=== PATIENT | female | born 1965 | race Caucasian/White ===

== ENCOUNTER 2022-04-19 14:26 | Emergency (ER) | payer OTHER, SELFPAY ==
[2022-04-19 14:29] VITALS: BP 141/94; PULSE 99; RESP 18; TEMP 36.6; O2SAT 97; BMI 25.7
--- NOTE | 2022-04-19 14:33 | ED_ITS ---
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 She states the patient became unconscious and fell on top of her while she was trying to put on her brief. The patient helped other staff members left the unconscious patient up off the floor. When transferring the patient from the stretcher to the bed she was pulled forward. She was encouraged to come to the ER for evaluation after the incident. Patient has been ambulating normally. She reports she feels the injury is muscle strain and spasm. She does not have a history of low back injury or issues in the past. She denies any numbness, weakness or tingling in the right leg. No bowel or bladder incontinence. MD elicited complaint: back pain and back injury Onset (ago): hour(s) Timing: intermittent Severity: moderate Similar Symptoms Previously: No Quality: aching Location: right lower back Radiation: groin and buttocks Exacerbating factors: movement Relieving factors: none Context: while lifting, bending and fall Associated symptoms: denies other symptoms Work related injury: Yes Related Data Previous Rx's Medication Instructions Recorded cyclobenzaprine 10 mg tablet 10 mg PO TID PRN muscle spasm #14 04/19/22 tabs ibuprofen 600 mg tablet 600 mg PO Q8H PRN pain #14 tabs 04/19/22 Allergies Allergy/AdvReac Type Severity Reaction Status Date / Time No Known Allergies Allergy Verified 04/19/22 14:34 Review of Systems Review of Systems: Yes all other systems are reviewed and are negative PMFSH Social History Social History Advance Directives: No Advance Directives Information Provided: No Physical Exam Vital Signs: Vital Signs: Last Vital Signs Temp 98 F 04/19/22 14:29 Pulse 99 04/19/22 14:29 Resp 18 04/19/22 14:29 BP 141/94 H 04/19/22 14:29 Pulse Ox 97 04/19/22 14:29 O2 Del Method 04/19/22 14:29 BMI result Body Mass Index 25.7 Appearance: Alert. Oriented X3. No acute distress. HEENT: normal inspection CVS: Normal heart rate and rhythm. Pulses normal. Respiratory: No respiratory distress. Skin: Skin warm and dry. Normal skin color. Normal skin turgor. No rashes. Back: Normal inspection, soft tissue tenderness of the right lower lumbar area, SI joint. no midline tenderness. normal ROM of the spine. Extremities: normal inspection x4, normal ROM. no joint swelling Neuro: Oriented X 3. No motor deficit. No sensory deficit. steady gait Medical Decision Making Medical Decision Making MDM Narrative: 56-year-old female presenting to the ER for evaluation of right lower back pain that radiates into the right buttock and right groin after a work related injury today. No significant fall to suggest a acute fracture. She is ambulating normally and has full range of motion. Clinical presentation and examination are consistent with soft tissue strain and spasm. Will treat accordingly with Flexeril, NSAIDs, rest. She will follow-up with her primary care doctor. We discussed return precautions. Stable for discharge home Differential Diagnosis Differential Diagnoses: The differential diagnosis associated with the presentation includes Inflammatory disorders, malignancy, trauma, osteoporosis, nerve root compression, radiculopathy, plexopathy, degenerative disc disease, disc herniation, spinal stenosis, sacroiliac joint dysfunction, facet joint injury, and less likely infection?like abscess or diskitis Prescription Management I considered prescription management with: Pain Medication and Other (Muscle relaxer) Critical Care Time Critical Care Time Critical Care Time: No Discharge Plan Discharge Clinical Impression: Low back strain Patient Disposition: Home, Self-Care Instructions: Low Back Strain (ED), Lower Back Exercises (ED) Additional Instructions: Your back pain is most likely due to muscle strain and spasm. No bending, lifting or twisting. Use ice several times per day for 20 minutes at a time for the next 48 hours and then change to heat. Take medications as prescribed to help with pain and discomfort. Follow up with your Primary Care Doctor this week. If your pain worsens, if you develop new numbness, tingling, weakness, loss of function or incontinence call 911 or come back to the ER right away for evaluation. Prescriptions: New cyclobenzaprine 10 mg tablet 10 mg PO TID PRN (Reason: muscle spasm) Qty: 14 0RF ibuprofen 600 mg tablet 600 mg PO Q8H PRN (Reason: pain) Qty: 14 0RF Referrals: Dagmar Hoang NP [Primary Care Provider] - Stand Alone Forms: Work/School Release Interventions: ED Discharge Assessment Last Done: 04/19/22 14:38 Discharge Date/Time: 04/19/22 14:44
== END 2022-04-19 14:44 | disposition home or self-care (01) ==
LOC: HO.ED 14:38
PROVIDERS: Emergency Provider Student in an Organized Health Care Education/Training Program; PCP Hospitalist
DX: M54.50 Low back pain, unspecified (principal)
CPT/HCPCS: 99282

== ENCOUNTER 2022-04-20 10:44 | Outpatient (REF) | payer OTHER, SELFPAY ==
[2022-04-20 14:07] LABS: Hematocrit 44.9 % (37.0-47.0); Hemoglobin 14.7 g/dl (12.0-16.0); Mean Corpuscular HGB Conc 32.7 g/dl (31.0-35.0); Mean Corpuscular Hemoglobin 29.9 pg (27.0-33.0); Mean Corpuscular Volume 91.4 fL (80.0-98.0); Mean Platelet Volume 10.6 fL (9.4-12.3); Platelet Count 290 X10*3/uL (160-400); Red Blood Count 4.91 X10*6/uL (4.20-5.50); White Blood Count 7.2 X10*3/uL (4.8-10.8)
[2022-04-20 14:36] LABS: Alanine Aminotransferase 20 U/L (0-31); Albumin Level 4.7 g/dL (3.5-5.0); Alkaline Phosphatase 67 U/L (39-117); Anion Gap 18 (12-20); Aspartate Amino Transferase 23 U/L (5-31); Bilirubin Total 0.9 mg/dL (0.0-1.0); Blood Urea Nitrogen 10 mg/dL (9-16); Calcium 9.4 mg/dL (8.4-10.2); Carbon Dioxide 23 mmol/L (22-29); Chloride 105 mmol/L (96-108); Cholesterol 233 mg/dL; Estimated Glomerular Filt Rate > 60; Glucose Fasting 83 mg/dL (60-99); HDL Cholesterol 85 mg/dL; LDL Cholesterol Calculated 128 mg/dl; Potassium 4.8 mmol/L (3.3-5.1); Sodium 141 mmol/L (135-145); Total Protein 7.8 g/dL (6.5-8.0); Triglycerides 101 mg/dL
[2022-04-20 14:52] LABS: TSH reflex Free T4 0.89 uIU/mL (0.32-4.0)
== END 2022-04-20 10:45 | disposition home or self-care (01) ==
LOC: HO.WFDLDS 10:44
PROVIDERS: Visit Provider Hospitalist
DX: Z00.00 Encounter for general adult medical examination without abnormal findings (principal); Z71.89 Other specified counseling
CPT/HCPCS: 36415; 80053; 80061; 84443; 85027

== ENCOUNTER → 2022-04-20 11:13 | Outpatient (BNVA) | payer OTHER, SELFPAY | PROVIDERS: PCP Hospitalist; Visit Provider Internal Medicine | DX: Z13.89 Encounter for screening for other disorder (principal) | CPT/HCPCS: 99202 ==

== ENCOUNTER 2022-04-22 07:57 | Emergency (ER) | payer OTHER, SELFPAY ==
[2022-04-22 07:59] VITALS: BP 160/88; PULSE 92; RESP 16; TEMP 36.3; O2SAT 100; BMI 25.7
--- NOTE | 2022-04-22 08:04 | ED_ITS ---
HPI - Skin/Abscess/Foreign Bdy General Chief complaint: Skin/Abscess/Foreign Body Stated complaint: Rash Time Seen by Provider: 04/22/22 08:03 Source: patient Mode of arrival: ambulatory Limitations: no limitations History of Present Illness HPI narrative: 56 yo female with history of recent work related back injury presents to the ER for evaluation of a rash to her forehead that started four days ago. It is itchy and has some drainage when she itches it. Last week when she had the work related injury, she was on the floor with her forehead pinned up against her walker. She states it has been the same for the last 4 days, no worsening and no improving. No numbness, tingling or burning sensation. No vision changes, no eye discharge, no swelling of her face. complaint: rash Onset (ago): day(s) (4) Location: head and face Severity: moderate Quality: pruritic Pain Consistency: intermittent Relieving factors: none Exacerbating factors: none Context: other (recent injury) Associated symptoms: denies other symptoms Treatments prior to arrival: none Related Data Previous Rx's Medication Instructions Recorded cephalexin 500 mg capsule 500 mg PO Q6H 7 days #28 caps 04/22/22 mupirocin 2 % topical ointment 1 appl topical TID #22 grams 04/22/22 Allergies Allergy/AdvReac Type Severity Reaction Status Date / Time No Known Allergies Allergy Verified 04/20/22 10:17 Review of Systems Review of Systems: Yes all other systems are reviewed and are negative [facility] Past Medical History Medical History Lower back injury Social History Social History Household Members: Spouse and Family Housing: House Alcohol intake: never Patient Tobacco Use Status: Current everyday Tobacco user Tobacco use type: Cigarette Smoked in Last 30 Days: No e-Cigarette/Vaping Use: Never Used Use of substances other than those prescribed or required for medical reasons: No Substance Use Type: Marijuana Advance Directives: No Advance Directives Information Provided: No Patient : No Current occupational status: employed Physical Exam Vital Signs: Vital Signs: Last Vital Signs Temp 98.1 F 04/22/22 08:18 Pulse 87 04/22/22 08:18 Resp 18 04/22/22 08:18 BP 131/91 H 04/22/22 08:18 Pulse Ox 98 04/22/22 08:18 O2 Del Method 04/22/22 08:18 BMI result Body Mass Index 25.7 Appearance: Alert. Oriented X3. No acute distress. HEENT: erythematous, warm area on the right side of the forehead with a few small pustules, no drainage, minimal tenderness. CVS: Normal heart rate and rhythm. Pulses normal. Respiratory: No respiratory distress. Skin: Skin warm and dry. Normal skin color. Normal skin turgor. Extremities: normal inspection x4, normal ROM Neuro: Oriented X 3. No motor deficit. No sensory deficit. Medications Administered Discontinued Medications Generic Name Dose Route Start Last Admin Trade Name Titoq PRN Reason Stop Dose Admin Cephalexin HCl 500 mg 04/22/22 08:27 04/22/22 08:56 Cephalexin 500 Mg Capsule PO 04/22/22 08:28 500 mg ONCE ONE Administration Mupirocin 1 appl 04/22/22 08:27 04/22/22 09:10 Mupirocin 2 % Oint 22 Gm Tube TOPICAL 04/22/22 08:28 1 appl ONCE ONE Administration Protocol Medical Decision Making Medical Decision Making MDM Narrative: 56-year-old female presents to the ER for evaluation of a itchy and red rash to the right side of her face for the last 4 days. On examination it is difficult to differentiate between bacterial versus viral etiology. It has been 4 days with no worsening of the rash. No typical burning sensation or severe pain to raise high clinical suspicion for shingles. Case discussed with Dr. Dixon who reviewed the image, he agrees with treating for bacterial infection and have close monitoring. She is instructed to call her doctor or come back to the ER if she were to have any worsening or extension of the rash to the eye. Differential Diagnosis Differential Diagnoses: The differential diagnosis associated with the presentation includes staph/impetigo, cellulitis, shingles, dermatitis External Record Review External record reviewed: Outpatient record Prescription Management I considered prescription management with: Antiviral and Antibiotic start with treatment for bacterial rash, monitor closely and f/u if symptoms worsen to get evaluated for possible shingles Discharge Plan Discharge Clinical Impression: Impetigo Patient Disposition: Home, Self-Care Instructions: Impetigo (ED) Additional Instructions: Use the prescribed ointment and take the prescribed antibiotics for bacterial infection. If you notice no improvement or worsening symptoms despite treatment, call your doctor right way or come back to the ER for further evaluation. Prescriptions: New cephalexin 500 mg capsule 500 mg PO Q6H 7 Days Qty: 28 0RF mupirocin 2 % ointment 1 appl topical TID Qty: 22 0RF Referrals: Dagmar Hoang, [employer] [Primary Care Provider] - Interventions: ED Discharge Assessment Last Done: 04/22/22 09:12 Discharge Date/Time: 04/22/22 09:13
[2022-04-22 08:18] VITALS: BP 131/91; PULSE 87; RESP 18; TEMP 36.7; O2SAT 98
--- OUTSIDE RECORDS SUMMARY | 2022-04-22 08:40 | XMS_ITS | Continuity of Care Document ---
:1965 Author Organization [facility] nter Address [address] [place] [address]- Care Team Providers Name Role Phone Not on Staff, PCP Primary Care Physician Unavailable Encounter [facility] Date(s): 01/16/22 - 01/16/22 [facility] [address] [place] [address]- Discharge Disposition: A-D/C Home Attending Physician: Shavonne Resendez MD Admitting Physician: Shavonne Resendez MD Referring Physician: Not on Staff, Referring MD Allergies, Adverse Reactions, Alerts No Known Allergies Immunizations Given and Recorded Vaccine Date Status Refusal Reason SARS-CoV-2 (COVID-19) mRNA BNT-162b2 vac1 02/10/20 Record ed tetanus-diphtheria toxoids (Td)2 12/14/05 Given 1Result Comment: [facility] [id number] Note: [facility] biologic lab INFO SHEET GIVEN Medications Acidophilus oral capsule 1 capsule, By Mouth, 2 times a day, # 28 capsule, 0 Refills, Maintenance, 07/05/18 13:32:15 EDT Start Date: 07/05/18 Stop Date: 07/19/18 Status: Orderedalbuterol CFC free 90 mcg/inh inhalation aerosol 2, puffs, Inhalation, Every 4 hours, PRN, # 18 Gm, Refills 0, Tot. Refills 0, Maintenance, 01/16/22 11:39:00 EST, Aerosol, Route to Pharmacy Electronically, [id number], [facility]/pharmacy #[id number], [address], cm, 01/16/22 9:22:00 EST, Heigh... Start Date: 01/16/22 Status: OrderedHycodan 5 mg-1.5 mg/5 mL oral syrup 5 mL, By Mouth, Every 4 hours, PRN for cough, # 60 mL, 0 Refills, Maintenance, 01/16/22 11:40:00 EST, Syrup, [id number], Partial fill upon patient request if the prescription is for a schedule II opioid drug., 5 mL By Mouth Every 4 hours,PRN:f... Start Date: 01/16/22 Status: OrderedpredniSONE 50 mg oral tablet 1 tablet = 50 mg, By Mouth, Daily, for 4 days, # 4 tablet, 0 Refills, Acute 01/20/22 11:40:00 EST, 01/16/22 11:40:00 EST, Tablet, [id number], Partial fill upon patient request if the prescription is for a schedule II opioid drug., 164, cm, .. Start Date: 01/16/22 Stop Date: 01/20/22 Status: OrderedTessalon Perles 100 mg oral capsule 2 capsule = 200 mg, By Mouth, 3 times a day, PRN Cough, # 21 capsule, 0 Refills, Maintenance, 01/16/22 11:40:00 EST, Capsule, [facility]/pharmacy #[id number], Partial fill upon patient request if the prescription is for a schedule II opioid drug., 164, cm, ... Start Date: 01/16/22 Status: Ordered Results Radiology Reports Exam Date Time Procedure Performing Provider Status 01/16/22 10:42 AM Chest Portable Aida Ortiz (Elaine mead) Notes:(Chest Portable) Reason For Exam: covid;Shortness of BreathRESULT: Chest Portable Chest Portable CLINICAL INDICATION: Shortness of Breath; covid; Clinical Question(s): Pneumonia COMPARISON: Chest x-ray, 05/07/2017. FINDINGS: The cardiac silhouette is within normal limits. Hilar and mediastinal contours are normal.The lungs are clear. There is no pleural effusion, pneumothorax, or evidence of CHF. No acute osseous abnormality is noted. IMPRESSION: No acute cardiopulmonary process. WSN: [id number] Ordering Physician: Shavonne Resendez Dictated By: Jacki Blakely MD Dictated Date/Time: 01/16/22 10:43 a Reviewed By: Jacki Blakely MD Signed By: Jacki Blakely MD Signed Date/Time: 01/16/22 10:43 am Transcribed By: JOSE MARTIN Transcribed Date/Time: 01/16/22 10:43 am Vital Signs Most recent to oldest 1 2 3 [Reference Range]: Height 164 cm (01/16/22 9:22 AM) Weight 71.5 kg (01/16/22 9:22 AM) Oxygen Saturation [94-100 %] 100 % 95 % 98 % (01/16/22 11:59 AM) (01/16/22 10:14 AM) (01/16/22 9 :22 AM) Pulse Rate [55-90 bpm] 110 bpm 72 bpm 81 bpm *H* (01/16/22 10:14 AM) (01/16/22 9:22 AM) (01/16/22 11:59 AM) Blood Pressure [90-138/55-84 131/69 mm Hg 143/74 mm Hg 172 /79 mm Hg mm Hg] (01/16/22 11:59 AM) *H* *H* (01/16/22 10:14 AM) (01/16/22 9:22 AM) Respiratory Rate [16-30 19 br/min 16 br/min 18 br/mi n br/min] (01/16/22 11:59 AM) (01/16/22 10:14 AM) (01/16/22 9 :22 AM) Temperature [96.8-100.4 DegF] 98.4 DegF 97.9 DegF (01/16/22 10:14 AM) (01/16/22 9:22 AM) Mode of Delivery (Oxygen) Room air Room air Room a ir (01/16/22 11:59 AM) (01/16/22 10:14 AM) (01/16/22 9 :22 AM) Temperature Route Oral Oral (01/16/22 10:14 AM) (01/16/22 9:22 AM) Dry Weight 71.5 kg (01/16/22 9:22 AM) Social History Social History Type Response Smoking Status 10 or more cigarettes (1/2 p ack or more)/day in last 30 days; Type: Cigarettes; Started at age: 18; entered on: 07/05/18 Sex Portable XR Chest Views BHSPowerscribe , CIS S: TRANSCRIBE Jacki Blakely MD: VERIFY Event Display: Result: Authored Date: [id number] Chest Portable CLINICAL INDICATION: Shortness of Breath; covid; Clinical Question(s): Pneumonia COMPARISON: Chest x-ray, 05/07/2017. FINDINGS: The cardiac silhouette is within normal limits. Hilar and mediastinal contours are normal.The lungs are clear. There is no pleural effusion, pneumothorax, or evidence of CHF. No acute osseous abnormality is noted. IMPRESSION: No acute cardiopulmonary process. WSN: [id number] Ordering Physician: Shavonne Resendez Dictated By: Jacki Blakely MD Dictated Date/Time: 01/16/22 10:43 a Reviewed By: Jacki Blakely MD Signed By: Jacki Blakely MD Signed Date/Time: 01/16/22 10:43 am Transcribed By: JOSE MARTIN Transcribed Date/Time: 01/16/22 10:43 am Patient Care team information Care Team PersonnelName: Not on Staff, PCP Position: [facility] Physician (General Medicine) Member Role: PCP Name: Shavonne Resendez MD Position: [facility] ED Medicine MD Member Role: Admitting Physician Address: Address: [address] [place] [address]- Name: Verónica Tan RN Position: [facility] ED RN W/OE and Tasks Member Role: Patient Care Provider Care Team Related PersonsName: CURT JI Address: [place] [address] Name: APRIL CARL Address: [place] [address]
[2022-04-22] MEDS: cephALEXin 500 MG CAPSULE PO (08:56)
[2022-04-22] MEDS: Mupirocin 2 % Oint 22 GM TUBE 1 APPL TOPICAL (09:10)
== END 2022-04-22 09:13 | disposition home or self-care (01) ==
PROVIDERS: Emergency Provider Emergency Medicine; PCP Hospitalist
DX: L01.00 Impetigo, unspecified (principal); F17.210 Nicotine dependence, cigarettes, uncomplicated; Z71.6 Tobacco abuse counseling
CPT/HCPCS: 99283; 99284

== ENCOUNTER 2022-04-22 15:32 | Outpatient (REF) | payer OTHER, SELFPAY ==
--- NOTE | ~2022-04-22 | MM_ITS ---
EXAMINATION: MM SCREENING DIGITAL BREAST TOMOSYNTHESIS, BILATERAL CLINICAL INFORMATION: Screening. Asymptomatic. Family history breast cancer, sisters x2. The lifetime risk of breast cancer based on the Tyrer-Cuzick Model is 25%. COMPARISON: Outside mammography 08/19/2016 ([facility]) TECHNIQUE: Digital breast tomosynthesis is performed in both the craniocaudal and mediolateral oblique views along with computer-aided detection (CAD). Synthesized 2D images are generated from the tomosynthesis. FINDINGS: The breasts are heterogeneously dense, which may obscure small masses (ACR BI-RADS breast composition Category c). The denser breast tissue composition is in the anterior breasts. There is no significant mass or architectural abnormality or abnormal calcifications. The axilla and skin contours are unremarkable. MM/MM tomosynthesis screening BI IMPRESSION: No significant changes from prior outside exam 2016. ASSESSMENT: BI-RADS 1: Negative RECOMMENDATION: Routine annual mammography screening. This patient's information was entered into a reminder system with a target due date for their next mammogram.
== END 2022-04-22 15:33 | disposition home or self-care (01) ==
LOC: HO.MAMMO 15:32
PROVIDERS: Visit Provider Hospitalist
DX: Z12.31 Encounter for screening mammogram for malignant neoplasm of breast (principal)
CPT/HCPCS: 77063; 77067

== ENCOUNTER 2024-05-12 09:08 | Outpatient (AMB) | payer OTHER, SELFPAY ==
--- NOTE | 2024-05-12 09:10 | A.OFFPC_ITS ---
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: No Allergies No Known Allergies Allergy (Verified 05/12/24 09:32) Medication List - Last Reconciled 05/12/24 by LY Rodrigez- semaglutide (weight loss) 1.7 mg subcut QWEEK Tobacco use date assessed: 05/12/24 Dental Screening Dental Screen Date: 05/12/24 Did you have a dental visit in the last 12 months?: Yes Did you have a dental problem in the last 6 months where you did not have access to dental care?: No Was dental information given to patient?: Patient has dentist HPI HPI Comments 2 History of Present Illness0 Details 58 y/o F current smoker, HLD, family hx of breast ca (2 sisters) 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 She noted its onset about two weeks prior, describing it as itchy and having flaked off twice. - She expresses difficulty accessing jason matologic care. - Family history includes breast cancer in two sisters, one of whom in 2019, and the patient has not had a mammogram in two years. - The patient has smoked since age 15, c urrently reporting approximately two packs per day x 45 years; tried gum; patches caused rash. Having increased activity intolerance Does not have inhalers at this time; interested in that. - She reports elevated hemoglobin A1c wi th a noted increase over time. on semaglutide for weight loss of what she was buying [id number] - She describes occasional swelling in t he lower extremities that comes and goes -Concerns about sleep apnea but does not want to do sleep study at this time. Social - History of avid hiking and backpacking , though activity reduced due to health concerns. - Daughter no longer living at home. ROS - Respiratory: Reports persistent shortn ess of breath. - Musculoskeletal: Denies problems with feet, swelling noted at day?s end. - Dermatological: Reports peeling and it chad lesion on chest. - General: Denies recent flu shot, repor ts improved health with mask-wearing during COVID-19 pandemic. Exam: General: Well developed, well nourished, in no acute distress. Appears stated age. Head: Normocephalic, atraumatic. Eyes: Pupils are equal, round and reactive to light and accommodation. Conjunctivae are clear. Vision grossly normal. Ears: TMs clear AU, EACS WNL Nose: Patent, without discharge. Mouth: There are no ulcers or lesions noted. No inflammation, no post nasal drip, no plaques nor exudates. Neck: Supple, no adenopathy or thyromegaly. Lungs: Clear to auscultation bilaterally. No rales or wheeze noted. Good air flow in all cates. + rhonci BLL that cleared w/ cough. Heart: Regular rate and rhythm. No murmurs, click, rubs or gallops are noted. Abdomen: Bowel sounds present in all quadrants. The abdomen is soft, nontender, with no masses or organomegaly noted. No hernias are noted. Musculoskeletal: Joints are nontender, without swelling, redness, or effusions. Range of motion is observed to be normal. Pulses: Peripheral pulses are equal and palpable bilaterally. Extremities: No clubbing, cyanosis nor edema is noted. Neurologic: Gait and station normal. Cranial Nerves 2-12 intact. Motor strength grossly symmetrical and intact. No sensory loss. Balance normal. Skin: No rashes, ulcers. Turgor is good. Skin color is good. Hair and nails are without abnormalities. Scabbed healing skin tear to L anterior ankle w/o complication Psych: Normal eye contact, affect and mood appropriate, and normal interactions. Patient is alert and appropriate to context. Anterior mid chest: Plan: Refer to [facility] General surgery team both for evaluation of the lesion on her chest and for genetic testing giving her family history of breast cancer in 2 sisters. Declined vaccinations Mammogram, DEXA and colonoscopies ordered. Smoking cessation reviewed. Refer to the lung cancer screening program. Refer to pulmonology for management. Start on Breo 50-25 mcg 1 inhalation daily. Offered albuterol but she reports that this only causes tachycardia and offers no improvement in her breathing. Check CXR -- results WNL today. Check routine screening labs RTO 1 year CPE, sooner PRN Patient was informed and verbally consented to the use of an ambient scribe for clinic note documentation during this visit. An additional 30 minutes was spent addressing the problem(s) noted at todays visit. This includes time spent before the visit reviewing the chart, time spent during the visit, and time spent after the visit on documentation reviewing laboratory results, diagnostic imaging, medications, performing a medically necessary evaluation, counseling on diagnoses, care coordination, ordering appropriate tests, ordering appropriate medications, review of tests performed by other providers, reporting test results with the patient, communication with other healthcare providers. [facility] Medical History Lower back injury Surgical History (Updated 05/12/24 @ 09:14 by Jenniffer Russo MA) No pertinent past surgical history Family History (Updated 05/12/24 @ 09:28 by Jenniffer Russo MA) Mother Diabetes Substance abuse Sister Diabetes Breast cancer Social History (Updated 05/12/24 @ 09:13 by Jenniffer Russo MA) Household Members: Spouse and Family Housing: House Are you a primary care team coordinator scheduler to a significant other at home: No Do you presently have visiting nurse or other home services: No Alcohol intake: never Patient Tobacco Use Status: Current everyday Tobacco user Tobacco use type: Cigarette e-Cigarette/Vaping Use: Never Used Second Hand Smoke Exposure: No Substance Use Type: Marijuana Current occupational status: employed Cognitive needs: No Hearing needs: No Vision needs: No Questionnaire PHQ-9 Over the last 2 weeks, how often have you been bothered by any of the following problems? 1. Little interest or pleasure in doing things: several days 2. Feeling down, depressed, or hopeless: several days 3. Trouble falling or staying asleep, or sleeping too much: several days 4. Feeling tired or having little energy: several days 5. Poor appetite or overeating: not at all 6. Feeling bad about yourself - or that you are a failure or have let yourself or your family down: not at all 7. Trouble concentrating on things, such as reading the newspaper or watching television: not at all 8. Moving or speaking so slowly that other people could have noticed. Or the opposite - being so fidgety or restless that you have been moving around a lot more than usual: not at all 9. Thoughts that you would be better off or of hurting yourself in some way: not at all Total score: 4 Depression Screening Interpretation: Negative Depression Screening Done: Yes 32175 - PHQ-9 Billing: Yes Source: Developed by Drs. Kelvin Castellanos, Kiya Hdz, Dashawn Hansen and colleagues, with an educational niharika from [employer]. Thrive Questionnaire Date Thrive assessed: 05/12/24 I am a: Patient What is your living situation today?: I have a steady place to live Within the past 12 months, did the food you bought not last and you didn't have the money to get more?: Never true Within the past 12 months, did you worry whether your food would run out before you got money to buy more?: Never true Do you have trouble paying for medicines?: No Do you have trouble getting transportation to medical appointments?: No Do you have trouble paying your heating and electricity bill?: No Do you have trouble taking care of your child, family member or friend?: No Do you have trouble with day-to-day activities such as bathing, preparing meals, shopping, managing finances, etc.?: No Are you currently unemployed and looking for a job?: No Are you interested in more education?: No Please select the resources that you would like help with: None Currently or been in a relationship where the following occur: No concerns reported THRIVE Score: 0 AUDIT C Alcohol Use Questionnaire (AUDIT-C) 1. How often do you have a drink containing alcohol?: Never 3. How often do you have six or more drinks on one occasion?: Never Total Score: 0 Score Reviewed/Action Taken: Yes FACUNDO-7 AMB Questionnaire FACUNDO-7 Date FACUNDO - 7 assessed: 05/12/24 Feeling nervous, anxious, or on edge: 0 = Not at all Not being able to stop or control worryin = Not at all Worrying too much about different things: 0 = Not at all Trouble relaxin = Not at all Being so restless that it is hard to sit still: 0 = Not at all Becoming easily annoyed or irritable: 0 = Not at all Feeling afraid as if something awful might happen: 0 = Not at all Total FACUNDO-7 score (0-4 normal; 5-9 mild; 10-14 moderate; 15-21 severe): 0 Source: Developed by Drs. Kelvin Castellanos, Kiya Hdz, Dashawn Hansen and colleagues, with an educational niharika from [employer]. FACUNDO-7 Assessment Billing FACUNDO-7 Assessment Tool: FACUNDO-7 Assessment 85616 Physical exam (Primary Care) Vital Signs: Last Vital Signs Temp 97.2 F 05/12/24 09:20 Pulse 68 05/12/24 09:20 Resp 12 05/12/24 09:20 BP 122/70 05/12/24 09:20 Pulse Ox 100 05/12/24 09:20 Oxygen Delivery Method Room Air 05/12/24 09:20 BMI result Body Mass Index 26.3 Tobacco/Smoking Status: Tobacco use Status Tobacco use date assessed 05/12/24 05/12/24 09:16 Patient Tobacco Use Status Current everyday Tobacco 05/12/24 09:16 Tobacco use type Cigarette 05/12/24 09:16 e-Cigarette/Vaping Use Never Used 05/12/24 09:16 Are you ready to quit: Yes Tobacco cessation counseling provided: Yes Items discussed: Nicotine replacement, QuitWorks and Other Relapse Prevention: discussed the importance of a supportive environment, discussed extending NRT, discussed negative mood or depression after quitting, weight gain after smoking is common and discussed dietary, exercise and/or lifestyle changes Number of minutes spent counselin CPT code: 55848 - 4-10 Minutes PHQ-9: PHQ-9 Score PHQ-9: Total score 4 05/12/24 13:46 Depression Screening Interpretation: Negative Thrive Assessment: Date of Thrive Assessment Date Thrive assessed 05/12/24 05/12/24 09:16 Currently or been in a relationship where the following occur: No concerns reported Results Reviewed Results Reviewed: CXR results: No acute airspace disease Coding Level of Care Code Est Pt Level 4 (30965) Est Pt Prev Care 40-64y(67404) Diagnoses Encounter for general adult medical examination with abnormal findings Z00.01 Atypical pigmented skin lesion L81.9 Family history of breast cancer Z80.3 Menopause Z78.0 Cigarette smoker motivated to quit F17.210 Screening for lung cancer Z12.2 Colon cancer screening Z12.11 Laboratory exam ordered as part of routine general medical examination Z00.00 Chronic cough R05.3 Cough type: chronic Mixed hyperlipidemia E78.2 Hyperlipidemia type: mixed hyperlipidemia Influenza vaccination declined Z28.21 Tetanus, diphtheria, and acellular pertussis (Tdap) vaccination declined Z28.21 Additional Codes FACUNDO-7 Assessment Billing - FACUNDO-7 Assessment Tool: FACUNDO-7 Assessment 20041 ([id number]) PHQ-9 - 86984 - PHQ-9 Billing: Yes ([id number]) Vital Signs *Quality* - CPT code: 66234 - 4-10 Minutes ([id number]) Assessment & Plan Assessment & Plan (1) Encounter for general adult medical examination with abnormal findings: Onset Date: ~05/2024 Code(s): Z00.01 - Encounter for general adult medical examination with abnormal findings Category: Medical (2) Atypical pigmented skin lesion: Comment: anterior chest Code(s): L81.9 - Disorder of pigmentation, unspecified Category: Medical (3) Family history of breast cancer: Comment: 2 sisters w/ breast ca Code(s): Z80.3 - Family history of malignant neoplasm of breast Category: Medical (4) Menopause: Code(s): Z78.0 - Asymptomatic menopausal state Category: Medical (5) Cigarette smoker motivated to quit: Code(s): F17.210 - Nicotine dependence, cigarettes, uncomplicated Category: Medical (6) Screening for lung cancer: Code(s): Z12.2 - Encounter for screening for malignant neoplasm of respiratory organs Category: Medical (7) Colon cancer screening: Code(s): Z12.11 - Encounter for screening for malignant neoplasm of colon Category: Medical (8) Laboratory exam ordered as part of routine general medical examination: Code(s): Z00.00 - Encounter for general adult medical examination without abnormal findings Category: Medical (9) Cough: Code(s): R05.9 - Cough, unspecified Category: Medical Qualifiers: Cough type: chronic Qualified Code(s): R05.3 - Chronic cough (10) Hyperlipidemia: Code(s): E78.5 - Hyperlipidemia, unspecified Category: Medical Qualifiers: Hyperlipidemia type: mixed hyperlipidemia Qualified Code(s): E78.2 - Mixed hyperlipidemia (11) Influenza vaccination declined: Code(s): Z28.21 - Immunization not carried out because of patient refusal Category: Medical (12) Tetanus, diphtheria, and acellular pertussis (Tdap) vaccination declined: Code(s): Z28.21 - Immunization not carried out because of patient refusal Category: Medical Plan . Orders: Orders 2 MM tomosynthesis screening BI Today Z12.31 - Encounter for screening mammogram for malignant neoplasm of breast XR DEXA axial skeleton Today Z13.820 - Encounter for screening for osteoporosis, Z78.0 - Asymptomatic menopausal state Complete Blood Count no Diff Today Z00.00 - Encounter for general adult medical examination without abnormal findings Ferritin Today Z00.00 - Encounter for general adult medical examination without abnormal findings Hemoglobin A1c Today Z00.00 - Encounter for general adult medical examination without abnormal findings TSH reflex Free T4 Today Z00.00 - Encounter for general adult medical examination without abnormal findings Comprehensive Met. Panel Today Z00.00 - Encounter for general adult medical examination without abnormal findings Lipid Panel Today Z00.00 - Encounter for general adult medical examination without abnormal findings Microalbumin, Random (w Creat) Today Z00.00 - Encounter for general adult medical examination without abnormal findings Vitamin B12 and Folate Today Z00.00 - Encounter for general adult medical examination without abnormal findings Vitamin D 25-OH Total Today Z00.00 - Encounter for general adult medical examination without abnormal findings XR chest 2V Today F17.210 - Nicotine dependence, cigarettes, uncomplicated, R05.9 - Cough, unspecified Referrals 2 General Surgery Referral L81.9 - Disorder of pigmentation, unspecified, Z80.3 - Family history of malignant neoplasm of breast Lung Cancer Screening Referral F17.210 - Nicotine dependence, cigarettes, uncomplicated, Z12.2 - Encounter for screening for malignant neoplasm of respiratory organs Pulmonology Referral F17.210 - Nicotine dependence, cigarettes, uncomplicated, Z12.2 - Encounter for screening for malignant neoplasm of respiratory organs Gastroenterology Referral Z12.11 - Encounter for screening for malignant neoplasm of colon Medications: New 2 fluticasone furoate-vilanterol 50-25 mcg/dose (Breo Ellipta) 1 inh inhalation Q24H 60 ea 2RF Patient Instructions: - Schedule mammogram and genetic counseling as planned. - Follow up with dermatology or general surgery for skin lesion assessment. - Maintain regular follow-ups for lung function assessment. - Start using prescribed Breo Ellipta as instructed. - Make lifestyle changes, including increased activity and healthier dietary habits. - Use the patient portal for any questions about this plan or other health inquiries. Health screenings for women You should visit your health care provider from time to time, even if you are healthy. The purpose of these visits is to: Screen for medical issues Assess your risk for future medical problems Encourage a healthy lifestyle Update vaccinations and other preventive care services Help you get to know your provider in case of an illness Information Even if you feel fine, you should still see your provider for regular checkups. These visits can help you avoid problems in the future. For example, the only way to find out if you have high blood pressure is to have it checked regularly. High blood sugar and high cholesterol levels also may not have any symptoms in the early stages. A simple blood test can check for these conditions. There are specific times when you should see your provider or receive specific health screenings. The [place] Preventive Services Task Force publishes a list of recommended screenings. Below are screening guidelines for women ages 18 to 39. BLOOD PRESSURE SCREENING Your blood pressure should be checked at least once every 3 to 5 years if: Your blood pressure is in the normal range (top number less than 120 mm Hg and bottom number less than 80 mm Hg) You don't have risk factors for high blood pressure Ask your provider if you need your blood pressure checked more often if: The top number is 120 to 129 mm Hg or the bottom number is 70 to 79 mm Hg You have diabetes, heart disease, kidney problems, are overweight, or have certain other health conditions You have a first-degree relative with high blood pressure You are Black You had high blood pressure during a If the top number is 130 mm Hg or greater or the bottom number is 80 mm Hg or greater, this is considered stage 1 hypertension. Schedule an appointment with your provider to learn how you can reduce your blood pressure. Watch for blood pressure screenings in your area. Ask your provider if you can stop in to have your blood pressure checked. BREAST CANCER SCREENING Experts do not agree about the benefits of breast self-exams in finding breast cancer or saving lives. Talk to your provider about what is best for you. A screening mammogram is not recommended for most women under age 40. Your provider may discuss and recommend mammograms, MRI scans, or ultrasounds if you have an increased risk for breast cancer, such as: A mother or sister who had breast cancer at a young age (most often starting screening earlier than the age the close relative was diagnosed) You carry a high-risk genetic marker CERVICAL CANCER SCREENING Cervical cancer screening should start at age 21 years unless your provider advises otherwise. After the first test: Women ages 21 through 29 should have a Pap test every 3 years. Exoprts do not agree on whether HPV testing is recommended for this age group. Women ages 30 through 65 should be screened with either a Pap test every 3 years or the HPV test every 5 years or both tests every 5 years (called cotesting ). Women who have been treated for precancer (cervical dysplasia) should continue to have Pap tests for 20 years after treatment or until age 65, whichever is longer. If you have had your uterus and cervix removed (total hysterectomy), and you have not been diagnosed with cervical cancer or precancer (high grade cervical neoplasia), you do not need cervical cancer screening. CHOLESTEROL SCREENING Cholesterol screening should begin at: Age 45 for women with no known risk factors for coronary heart disease Age 20 for women with known risk factors for coronary heart disease Repeat cholesterol screening should take place: Every 5 years for women with normal cholesterol levels More often if changes occur in lifestyle (including weight gain and diet) More often if you have diabetes, heart disease, kidney problems, or certain other conditions DIABETES SCREENING You should be screened for diabetes starting at age 35 and then repeated every 3 years if you have no risk factors for diabetes. Screening may need to start earlier and be repeated more often if you have other risk factors for diabetes, such as: You have a first degree relative with diabetes. You are overweight or have obesity. You have high blood pressure, prediabetes, or a history of heart disease. Screening for diabetes should be done if you are planning to become and you are overweight and have other risk factors such as high blood pressure. DENTAL EXAM Go to the dentist once or twice every year for an exam and cleaning. Your dentist will evaluate if you need more frequent visits. EYE EXAM Have an eye exam every 5 to 10 years before age 40. If you have vision problems, have an eye exam every 2 years or more often if recommended by your provider. You should have an eye exam that includes an examination of your retina (back of your eye) at least every year if you have diabetes. IMMUNIZATIONS Commonly needed vaccines include: Flu shot: get one every year. COVID-19 vaccine: ask your provider what is best for you. Tetanus-diphtheria and acellular pertussis (Tdap) vaccine: have one at or after age 19 as one of your tetanus-diphtheria vaccines if you did not receive it as an adolescent. Tetanus-diphtheria: have a booster (or Tdap) every 10 years. Varicella vaccine: receive 2 doses if you never had chickenpox or the varicella vaccine. Hepatitis B vaccine: receive 2, 3, or 4 doses, depending on your exact circumstances. Measles, mumps, and rubella (MMR) vaccine: receive 1 to 2 doses if you are not already immune to MMR. Your provider can tell you if you are immune. Ask your provider about the human papillomavirus (HPV) vaccine if: You have not received the HPV vaccine in the past You have not completed the full vaccine series (you should catch up on this shot) Ask your provider if you should receive other immunizations if you have certain health problems that increase your risk for some diseases such as pneumonia. INFECTIOUS DISEASE SCREENING Women who are sexually active should be screened for chlamydia and gonorrhea up until age 25. Women 25 years and older should be screened for chlamydia and gonorrhea if at high risk. Screening for hepatitis C: All adults ages 18 to 79 should get a one-time test for hepatitis C. people should be screened at every . Screening for human immunodeficiency virus (HIV): All people ages 15 to 65 should get a one-time test for HIV. Depending on your lifestyle and medical history, you may also need to be screened for infections such as syphilis and HIV, as well as other infections. PHYSICAL EXAM All adults should visit their provider from time to time, even if they are healthy. The purpose of these visits is to: Screen for disease Assess your risk of future medical problems Encourage a healthy lifestyle Update your vaccinations and other preventive care services Maintain a relationship with a provider in case of an illness Your height, weight, and BMI should be checked at every exam. During your exam, your provider may ask you about: Depression and anxiety Diet and exercise Alcohol and tobacco use Safety issues, such as using seat belts, smoke detectors, and intimate partner violence Your medicines and risk for interactions SKIN SELF-EXAM Your provider may check your skin for signs of skin cancer, especially if you're at high risk, such as if you: Have had skin cancer before Have close relatives with skin cancer Have a weakened immune system OTHER SCREENING Talk with your provider about colon cancer screening if you have a strong family history of colon cancer or polyps, or if you have had inflammatory bowel disease or polyps yourself. Routine bone density screening of women under 40 is not recommended. Walk-In Care (Urgent Care): We Make it Easy Walk-in for urgent medical issues such as: ? Seasonal Allergies ? Insect Bites ? Cough ? Diarrhea ? Acute Asthma Attacks ? Back, Knee or Joint Pain ? Ear Infection ? Fever without a Rash ? Headaches ? Nausea ? [place], Rash or Skin Irritation ? Sore Throat ? Sports Physicals ? Vomiting Most insurances are accepted. Patients do not need to be part of the [facility] to seek care at the walk-in clinic. Locations [facility] , [place] [address] ? [phone] [facility] in [place] provides services to ages 18 and over. Open Wednesday-Wednesday: 8 a.m. to 5 p.m. and Wednesday: 9 a.m. to 3 p.m.* *Hours may vary due to staffing availability. To confirm Walk-In Care hours in [place], please call [phone]. [address] [place] [address] ? [phone] [facility] in [place] provides services to ages 12 and over. Open Wednesday-Wednesday: 8 a.m. to 5 p.m. Hours may vary due to staffing availability. To confirm Walk-In Care hours in [place], please call [phone]. LABORATORY SERVICES: [facility] Lab ? Primary Location [address] [place] [address] Wednesday through Wednesday 6:00 AM ? 5:00 PM Wednesday 7:00 AM ? 11:00 AM* [phone] The [facility] Lab is centrally located near the front entrance of the [facility] for easy outpatient access. Convenient parking is provided for outpatients. *Hours may vary due to staffing availability. To confirm Laboratory hours for any location, please call [phone]. Offsite Location For your convenience, we offer offsite laboratory draw stations at the following locations: [address] [facility] [place] ? [facility] [address] [facility], [address], [place] Wednesday through Wednesday 7:30 AM ? 1:00 PM* [phone] *Hours may vary due to staffing availability. To confirm Laboratory hours for any location, please call [phone]. [place] [address] [facility] [place] Wednesday through Wednesday 6:00 AM ? 3:30 PM* Wednesday 6:30 AM ? 3 PM* [phone] *Hours may vary due to staffing availability. To confirm Laboratory hours for any location, please call [phone]. [address] [facility] Wednesday through Wednesday 7:30 AM ? 4:00 PM* [phone] *Hours may vary due to staffing availability. To confirm Laboratory hours for any location, please call [phone] [place] [address] Wednesday through 9:00 AM ? 4:00 PM* *Hours may vary due to staffing availability. To confirm Laboratory hours for any location, please call [phone]. Appointments are not necessary. Walk-ins are welcome. Like all the departments throughout the [facility], our Lab undergoes frequent reviews to ensure the quality and accuracy of test results, and our staff takes special pride in its status as a nationally accredited facility. Patient Portal: ONE PATIENT. ONE RECORD. BETTER CARE. [facility] has a fully integrated, cutting- edge mobile electronic health information system that has revolutionized the way we care for our patients and manage our organization. This system improves communication and coordination enabling us to provide safe, higher-quality care, and an overall positive experience for staff and patients. Our first priority, as always, is to deliver the highest quality care possible. The system is running in the background supporting that priority. This portal is for all [facility] services and practices. If you are experiencing any technical difficulties with enrolling or logging into the Patient Portal please complete the [facility] Patient Portal Technical Support Form. [facility] now offers a new secure on-line interactive tool for patients to review their health information ? ?Patient Portal. This interactive web portal will enable patients and their families to take an active role in their care by providing easy, secure access to their health information via the internet. The Patient Portal provides patients with instant access to their health information, including laboratory results, medications, allergies, demographic information, visit history, and more. In addition to managing their own care, parents and health care proxies with authorized consent will appreciate the ability to access the records of those individuals for whom they provide care. Please note: if you wish to gain access (Proxy) to another patient?s portal, you will be required to come to the Medical Records Department in person at [facility]. Both the patient giving proxy access and the proxy will need to provide photo identification and complete the appropriate authorization. The Patient Portal also allows track their appointments online. The [facility] Patient Portal also saves patients time by allowing them to submit updates to their demographic and contact information prior to their visits. Portal email notifications will also alert patients to any new activity on their portal, such as test results and new appointments. In order to initially enroll in the [facility] Patient Portal, you will need to enter some required information including the following: * your [facility] Medical Record number * your personal home email address * name * date of Please note: In order to enroll in the [facility] Patient Portal, we need to have your email address on file in your electronic medical record. ?The email address needs to be specific for one person (yourself) in order for your Portal enrollment to be successful. ?You can update your email address in person with our Registration staff when you are registering for a hospital visit. ?Otherwise, you will need to come to the Health Information Management (Medical Records) Department at [facility]. ?We are open from Wednesday ? Wednesday from 7:30 a.m. ? 4:30 p.m. ?You will be required to present a photo id. Once you have successfully enrolled in the Patient Portal, you will receive a one-time user id and password for the Portal, sent to your email address. ?This will allow you to log into the Patient Portal within 99 hrs and reset your own logon id and password, and define personal security questions. ?Once your permanent login and password have been set, you can log into the [facility] Patient Portal at any time via the blue button above or from the Portal Logon button on any page of the [facility] website. [facility] encourage all of our patients to enroll in Patient Portal as it presents a valuable opportunity for patients and their families to actively participate in their care and stay healthy Welcome to [facility]. ?We look forward to working with you.
[2024-05-12 09:20] VITALS: BP 122/70; PULSE 68; RESP 12; TEMP 36.2; O2SAT 100; BMI 26.3
== END 2024-05-12 10:00 | disposition home or self-care (01) ==
LOC: HO.HMCFM 09:09
PROVIDERS: PCP Nurse Practitioner Family; Visit Provider Nurse Practitioner Family
DX: Z00.01 Encounter for general adult medical examination with abnormal findings (principal); L81.9 Disorder of pigmentation, unspecified; Z80.3 Family history of malignant neoplasm of breast; Z78.0 Asymptomatic menopausal state; F17.210 Nicotine dependence, cigarettes, uncomplicated; Z12.2 Encounter for screening for malignant neoplasm of respiratory organs; Z12.11 Encounter for screening for malignant neoplasm of colon; Z00.00 Encounter for general adult medical examination without abnormal findings; R05.3 Chronic cough; E78.2 Mixed hyperlipidemia; Z28.21 Immunization not carried out because of patient refusal

== ENCOUNTER → 2024-05-12 09:08 | Outpatient (BNVA) | payer OTHER, SELFPAY | PROVIDERS: PCP Nurse Practitioner Family; Visit Provider Nurse Practitioner Family | DX: Z00.01 Encounter for general adult medical examination with abnormal findings (principal); L81.9 Disorder of pigmentation, unspecified; R05.3 Chronic cough; E78.2 Mixed hyperlipidemia; F17.210 Nicotine dependence, cigarettes, uncomplicated; Z78.0 Asymptomatic menopausal state; Z28.21 Immunization not carried out because of patient refusal; Z80.3 Family history of malignant neoplasm of breast | CPT/HCPCS: 96127 ==

== ENCOUNTER → 2024-05-12 10:29 | Outpatient (BNV) | payer OTHER, SELFPAY | PROVIDERS: PCP Nurse Practitioner Family; Visit Provider Radiology Diagnostic Radiology | DX: R05.9 Cough, unspecified (principal); F17.210 Nicotine dependence, cigarettes, uncomplicated | CPT/HCPCS: 71046 ==

== ENCOUNTER 2024-05-12 10:30 | Outpatient (REF) | payer OTHER, SELFPAY ==
--- NOTE | ~2024-05-12 | XR_ITS ---
EXAMINATION: XR CHEST CLINICAL INFORMATION: F17.210 - Nicotine dependence, cigarettes, uncomplicated COMPARISON: None available. TECHNIQUE: 2 views of the chest were obtained. FINDINGS: No consolidation, pleural effusion or pneumothorax. No hyperinflation. Cardiomediastinal silhouette size is normal. S-shaped curvature of the thoracolumbar spine. Mild multilevel thoracic spondylosis. Decreased mineralization of the osseous structures. Patient's large body habitus. XR/XR chest 2V IMPRESSION: No acute airspace disease. Dextroconvex curvature thoracolumbar spine. Electronically signed by: Thom Cisneros MD 05/12/2024 11:35 AM EDT
== END 2024-05-12 10:31 | disposition home or self-care (01) ==
LOC: HO.XRAY 10:30
PROVIDERS: PCP Nurse Practitioner Family; Visit Provider Nurse Practitioner Family
DX: R05.9 Cough, unspecified (principal); F17.210 Nicotine dependence, cigarettes, uncomplicated
CPT/HCPCS: 71046

== ENCOUNTER 2024-05-16 10:43 | Outpatient (REF) | payer OTHER, SELFPAY ==
[2024-05-16 11:24] LABS: Hematocrit 43.4 % (37.0-47.0); Hemoglobin 15.1 g/dl (12.0-16.0); Mean Corpuscular HGB Conc 34.8 g/dl (31.0-35.0); Mean Corpuscular Hemoglobin 31.3 pg (27.0-33.0); Mean Corpuscular Volume 89.9 fL (80.0-98.0); Platelet Count 262 X10*3/uL (160-400); Red Blood Count 4.83 X10*6/uL (4.20-5.50); White Blood Count 5.3 X10*3/uL (4.8-10.8)
[2024-05-16 11:29] LABS: Estimated Average Glucose 97 mg/dL; Hemoglobin A1C 120.8971 umol/L; Total Hemoglobin (HGBA1C) 3835.3638 umol/L
[2024-05-16 12:14] LABS: Creatinine Urine 75.29 mg/dL; Microalbumin Urine < 5.0 mg/L
[2024-05-16 12:47] LABS: Alanine Aminotransferase 16 U/L (0-31); Albumin Level 4.6 g/dL (3.5-5.0); Alkaline Phosphatase 76 U/L (39-117); Anion Gap 10 (12-20); Aspartate Amino Transferase 22 U/L (5-31); Bilirubin Total 0.5 mg/dL (0.0-1.0); Blood Urea Nitrogen 9 mg/dL (9-16); Calcium 9.9 mg/dL (8.4-10.2); Carbon Dioxide 25 mmol/L (22-29); Chloride 109 mmol/L (96-108); Cholesterol 203 mg/dL (<200); Estimated Glomerular Filt Rate > 60; Folate 11.3 ng/mL (> or = 4.0); Glucose Random 92 mg/dL (60-115); HDL Cholesterol 79 mg/dL (>40); LDL Cholesterol Calculated 107 mg/dL (<100); Potassium 4.3 mmol/L (3.3-5.1); Sodium 140 mmol/L (135-145); Total Protein 7.7 g/dL (6.5-8.0); Triglycerides 88 mg/dL (<150); Vitamin B12 226 pg/mL (200-900)
[2024-05-16 13:06] LABS: Ferritin 145 ng/mL (10-250); TSH reflex Free T4 1.92 uIU/mL (0.32-4.0); Vitamin D 25-OH Total 10.3 ng/mL (>30)
== END 2024-05-16 10:44 | disposition home or self-care (01) ==
LOC: HO.LAB 10:43
PROVIDERS: PCP Nurse Practitioner Family; Visit Provider Nurse Practitioner Family
DX: Z00.00 Encounter for general adult medical examination without abnormal findings (principal); Z13.1 Encounter for screening for diabetes mellitus; Z13.6 Encounter for screening for cardiovascular disorders
CPT/HCPCS: 36415; 80053; 80061; 82043; 82306; 82570; 82607; 82728; 82746; 83036; 84443; 85027

== ENCOUNTER → 2024-06-08 10:24 | Outpatient (BNVA) | payer OTHER, SELFPAY | PROVIDERS: PCP Nurse Practitioner Family; Visit Provider Surgery ==

== ENCOUNTER 2024-12-21 15:16 | Outpatient (AMB) | payer OTHER, SELFPAY ==
--- NOTE | 2024-12-21 07:27 | MHC.PC.OV ---
Intake Visit Reasons: Work accommodation's Intake Note: Telehealth to go over work accommodations Secret Service Agent Required: No Allergies No Known Allergies Allergy (Verified 12/21/24 15:16) Tobacco use date assessed: 12/21/24 Dental Screening Dental Screen Date: 12/21/24 Did you have a dental visit in the last 12 months?: Yes Did you have a dental problem in the last 6 months where you did not have access to dental care?: No Was dental information given to patient?: Patient has dentist HPI HPI Comments History of Present Illness Details 59 y/o F current smoker, HLD, family hx of breast ca (2 sisters), cataracts bilat 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 Bilateral Cataracts: - The patient was diagnosed with bilateral cataracts by Dr. Montague on 12/07/24 - She reports gradually worsening night vision over the years, which has significantly worsened this year, making it unsafe to drive at night. - Symptoms while driving in the dark include disorientation from other lights, a vertigo-like sensation of driving into space, and having to slam on her brakes because she cannot see. - She experiences significant anxiety, shaking, and has to pry her fingers off the steering wheel after driving at night. - An eye exam revealed her vision was only correctable to 20/50 in the right eye and 20/40 in the left eye, and that glasses could not correct her vision. - She was advised by her eye doctor to avoid driving at night and has a cataract consultation scheduled with first iliana Brumfield tomorrow. 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 Review of Systems - Eyes: Reports gradually worsening night vision, which she describes as seeing the sesar and pavement as the same color. - She reports her vision cannot be corrected with glasses, with her right eye being 'illegal' and her left eye 'technically legal'. - Neurological: Reports a vertigo-like sensation and disorientation from other lights while driving at night, feeling as if she is 'driving into outer space'. - Psychiatric: Reports feeling scared and shaking like a leaf after driving in the dark, having to pry her fingers from the steering wheel and gather herself before work. Physical Exam Awake alert NAD Wearing glasses Speaking in full sentences Cooperative and engaging Results - Vision Exam (12/07/24): Patient's vision in the right eye is correctable to 20/50, and the left eye is correctable to 20/40. - Ophthalmology Note (12/07/24): The patient was diagnosed with a cataract. See below Assessment and Plan 1. 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 - The condition causes disorientation, vertigo-like symptoms, and significant anxiety. - She requires work accommodations to avoid driving in the dark. - Plan: - A letter will be provided to the patient via the patient portal supporting the recommendation from her eye doctor that she avoid driving at night. - If her employer cannot accommodate a schedule with only daylight driving, the medical recommendation is for her to take a Leave of Absence (JOSH) until after cataract surgery is completed. - The patient has a cataract consultation with Dr. Landin tomorrsloan, who will be responsible for completing further JOSH or surgical paperwork, as he will be performing the procedure and determining post-operative restrictions and recovery time. - The patient will follow up as needed. Patient was given time to ask questions. All questions were answered to their satisfaction. Telehealth Attestation This visit was conducted via synchronous audio and video telehealth. The patient's identity was verified. The documentation accurately reflects the conversation. The patient has been explained that this is an interactive (audio/video) telehealth encounter and what that consists of. The patient understands and wishes to proceed. ScribeStorm platform was used. Total time spent caring for the patient today was 21 minutes. This includes time spent before the visit reviewing the chart, time spent during the visit, and time spent after the visit on documentation, reviewing laboratory results, diagnostic imaging, medications, performing a medically necessary evaluation, counseling on diagnoses, care coordination, ordering appropriate tests, ordering appropriate medications, review of tests performed by other providers, reporting test results with the patient, communication with other healthcare providers. [facility] Medical History Lower back injury Surgical History (Updated 05/12/24 @ 09:14 by Jenniffer Russo MA) No pertinent past surgical history Family History (Updated 07/19/24 @ 10:08 by KAREN Cassidy) Mother Diabetes Substance abuse Sister Diabetes Breast cancer Sister Breast cancer Social History (Updated 05/12/24 @ 09:13 by Jenniffer Russo MA) Household Members: Spouse and Family Both parents involved: No Caregiver staying overnight: No Housing: House Are you a primary adult care manager to a significant other at home: No Do you presently have visiting nurse or other home services: No 75 years or older and lives alone: No Alcohol intake: never Patient Tobacco Use Status: Current everyday Tobacco user Tobacco use type: Cigarette e-Cigarette/Vaping Use: Never Used Second Hand Smoke Exposure: No Substance Use Type: Marijuana service: No Current occupational status: employed Cognitive needs: No Hearing needs: No Vision needs: No Questionnaire Thrive Questionnaire Date Thrive assessed: 04/05/24 I am a: Patient What is your living situation today?: I have a steady place to live Within the past 12 months, did the food you bought not last and you didn't have the money to get more?: Never true Within the past 12 months, did you worry whether your food would run out before you got money to buy more?: Never true Do you have trouble paying for medicines?: No Do you have trouble getting transportation to medical appointments?: No Do you have trouble paying your heating and electricity bill?: No Do you have trouble taking care of your child, family member or friend?: No Do you have trouble with day-to-day activities such as bathing, preparing meals, shopping, managing finances, etc.?: No Are you currently unemployed and looking for a job?: No Are you interested in more education?: No Please select the resources that you would like help with: None Currently or been in a relationship where the following occur: No concerns reported THRIVE Score: 0 FACUNDO-7 AMB Questionnaire FACUNDO-7 Date FACUNDO - 7 assessed: 05/12/24 Source: Developed by Drs. Kelvin Castellanos, Kiya Hdz, Dashawn Hansen and colleagues, with an educational niharika from [employer]. Physical exam (Primary Care) Tobacco/Smoking Status: Tobacco use Status Tobacco use date assessed 12/21/24 12/21/24 15:17 Patient Tobacco Use Status Current everyday Tobacco 12/21/24 07:30 Tobacco use type Cigarette 12/21/24 07:30 e-Cigarette/Vaping Use Never Used 12/21/24 07:30 Thrive Assessment: Date of Thrive Assessment Date Thrive assessed 04/05/24 12/21/24 07:30 Currently or been in a relationship where the following occur: No concerns reported Telehealth Telehealth Telehealth Platform: [facility] Location of provider rendering services: practice address Location of patient: address on file Patient Identification confirmed using: Name, : Yes Telehealth method: video Patient verbally consented to treatment: Yes Patient verbally consented to billing insurance company: Yes Patient informed of any privacy concerns related to visit: Yes Minutes spent on Phone/Video with Pt.: 10 Coding Level of Care Code Tele Est Pt Level 3 (00905) Complex EM visit Add On G2211 Diagnoses Other cataract of both eyes H26.8 Cataract type: other Decreased vision in both eyes H54.3 Assessment & Plan Assessment & Plan (1) Cataract, bilateral: Code(s): H26.9 - Unspecified cataract Category: Medical Qualifiers: Cataract type: other Qualified Code(s): H26.8 - Other specified cataract (2) Decreased vision in both eyes: Code(s): H54.3 - Unqualified visual loss, both eyes Category: Medical Plan .
--- OUTSIDE RECORDS SUMMARY | 2024-12-21 18:26 | XMS_ITS | Clinical Summary ---
Author Organization [facility] Address [address] [facility] [address] [place] [phone] Phone Care Team Providers Care Php Mysql Web Developer Name Role Phone Narayan Maryana Cyndi SYLVESTER Primary Care Provider + Allergies No known active allergies Medications No known medications Social History Tobacco Use Types Packs/Day Years Used Date Smoking Tobacco: Every Day Smokeless Tobacco: Never Alcohol Use Standard Drinks/Week Comments Yes 0 (1 standard drink = 0.6 oz pur e alcohol) Education Answer Date Recorded Are you interested in more education? Not on monroe e 06/05/2022 Are you concerned about learning? Not on file 06/05/2022 No 06/05/2022 No 06/05/2022 Digital Access Answer Date Recorded No 07/04/2022 No 07/04/2022 No 07/04/2022 Reliable internet access at home? Not on file 07/04/2022 Device with a working camera? Not on file Comments Unknown Sex and Gender Information Value Date Recorded Sex Assigned at Not on file Legal Sex Female 3:32 PM EDT Gender Identity Not on file Sexual Orientation Not on file Last Filed Vital Signs Vital Sign Reading Time Taken Comments Blood Pressure - - Pulse - - Temperature - - Respiratory Rate - - Oxygen Saturation - - Inhaled Oxygen Concentration - - Weight 64.4 kg (142 lb) 09/09/2017 8:49 AM EDT Height 162.6 cm (5' 4.02 ) 09/09/2017 8:49 AM ED T Body Mass Index 24.36 09/09/2017 8:49 AM EDT Plan of Treatment Health Maintenance Due Date Last Done Comments Adult Td,Tdap Booster 1967 LIPID PANEL 1967 DEPRESSION SCREENING 1979 SMOKING Hx and SMOKELESS TOBACCO SCREENING 07/14/1980 HEPATITIS C SCREENING 07/14/1985 HIV ONE-TIME SCREENING (18-6 5 YEARS) 07/14/1985 PNEUMOCOCCAL VACCINES (50+ years) (1 of 2 - PCV) 07/14/1986 PAP SMEAR 07/14/1988 MAMMOGRAM 2007 COLOGUARD 07/14/2012 COLONOSCOPY 07/14/2012 COLORECTAL CANCER SCREENING 07/14/2012 FIT TEST 07/14/2012 FOBT 07/14/2012 SIGMOIDOSCOPY 07/14/2012 VIRTUAL COLONOSCOPY 07/14/2012 ZOSTER VACCINES (1 of 2) 07/14/2017 INFLUENZA VACCINE (#1) 2024 COVID-19 VACCINE (3 - 2024-2 6 season) 2024 03/02/2020, 02/10/2020 RSV VACCINE (1 - 1-dose 75+ series) 07/14/2042 HEPATITIS A VACCINES Aged Out No long er eligible based on patient's age to complete this topic HIB VACCINES Aged Out No longer eligi ble based on patient's age to complete this topic IPV VACCINES Aged Out No longer eligi ble based on patient's age to complete this topic MENINGOCOCCAL VACCINES (ACWY) Aged Out No longer eligible based on patient's age to complete this topic MENINGOCOCCAL VACCINES (B) Aged Out N o longer eligible based on patient's age to complete this topic Medical Devices Not on file Insurance O O [facility] HMO Care Teams Php Mysql Web Developer Relationship Specialty Start Date End Date Maryana Busch NP [address] [place] [address] PCP - General Family Medicine 08/18/17 Additional Source Comments The information contained in this document represents components of the legal health record. It is not the complete legal health record.[facility]
== END 2024-12-21 16:27 | disposition home or self-care (01) ==
LOC: HO.HMCFM 15:16
PROVIDERS: PCP Nurse Practitioner Family; Visit Provider Nurse Practitioner Family
DX: H25.043 Posterior subcapsular polar age-related cataract, bilateral (principal); H52.03 Hypermetropia, bilateral